=== PATIENT | female | born 1955 | race American Indian/Alaskan Native ===

== ENCOUNTER 2020-09-23 19:59 | Emergency (ER) | payer SELFPAY ==
[2020-09-23 20:27] VITALS: BP 176/76
--- NOTE | 2020-09-23 21:25 | XRay Report ---
LEFT FOOT 3 VIEWS INDICATION / CLINICAL INFORMATION: left foot pain and redness. COMPARISON: None available. FINDINGS: BONES / JOINT(S): No acute fracture or subluxation. There is mild degenerative change in the great to e MTP joint SOFT TISSUES: There is soft tissue swelling anteriorly. ADDITIONAL FINDINGS: None. Signer Name: Krishna Jay MD Signed: 09/23/2020 9:21 PM Workstation Name: [id number]
== END 2020-09-24 02:53 ==
LOC: ED 19:59
DX: M25.572 Pain in left ankle and joints of left foot (principal); Z53.21 Procedure and treatment not carried out due to patient leaving prior to being seen by health care provider